=== PATIENT | male | born 2000 | race Caucasian/White ===

== ENCOUNTER 2021-07-13 00:51 | Emergency (ER) | payer OTHER ==
--- NOTE | 2021-07-13 01:49 | ED Physician Documentation ---
History of Present Illness - Stated complaint Stated Complaint: R ANKLE PX - Chief complaint Chief Complaint: Trauma Ext - Additonal information Additional information: The patient presents with complaints of right ankle pain. He reports that he was playing football with some buddies 4 days ago and tripped. He describes an inversion injury. Since that time, he has noticed bruising, swelling and a "clicking" sensation as he ambulates. He is able to weight-bear but it does cause pain. He also has pain on the upper outer aspect of his leg and points to the top of his fibula when asked where it is located. He had no other injuries. He has twisted his ankle in the past but denies ever having had any more severe injuries. Review of Systems Constitutional: denies: Fever, Chills, Myalgias Cardiac: denies: Chest pain / pressure, Palpitations Respiratory: denies: Dyspnea, Cough GI: denies: Abdominal Pain, Abdominal Swelling, Nausea, Vomiting, Diarrhea Musculoskeletal: reports: Extremity pain, Joint pain, Extremity swelling, Joint swelling, Pain with weight bearing. denies: Neck pain, Back pain Neurologic: denies: Focal weakness, Numbness, Head injury PD PAST MEDICAL HISTORY - Past Medical History Past Medical History: No - Past Surgical History Past Surgical History: No - Present Medications Home Medications: Ambulatory Orders Medication Instructions Recorded Confirmed No Known Home Medications 07/13/21 07/13/21 - Allergies Allergies/Adverse Reactions: Allergies Allergy/AdvReac Type Severity Reaction Status Date / Time No Known Drug Allergies Allergy Verified 07/13/21 00:54 - Social History Does the pt smoke?: No Smoking Status: Never smoker Does the pt drink ETOH?: No Does the pt have substance abuse?: No - Immunizations Immunizations are current?: Yes PD ED PE NORMAL - General General: Alert and oriented X 3, No acute distress - HEENT HEENT: Atraumatic - Neck Neck: No bony TTP - Cardiac Cardiac: RRR, No murmur, No gallop, No rub - Respiratory Respiratory: No respiratory distress, Clear bilaterally - Abdomen Abdomen: Normal bowel sounds, Soft, Non tender, Non distended PD ED PE EXPANDED - Extremities Extremities: Limited ROM, Swelling, Right leg (The patient had mild tenderness on his proximal lower extremity in the fibular region. Examination of his lateral ankle revealed soft tissue swelling, ecchymosis and mild tenderness. He had no ligamentous laxity and had 2+ DP and PT pulses.), Right ankle, Motor intact, Sensory intact, Vascular intact, Tendon intact. No: Ligament laxity Results - Vitals Vitals: Vital Signs - 24 hr 07/13/21 07/13/21 07/13/21 00:55 01:00 03:08 Temperature 36.7 C 36.7 C 36.7 C Heart Rate 66 66 65 Respiratory 16 16 16 Rate Blood Pressure 146/81 H 146/81 H 128/71 O2 Saturation 99 99 100 Oxygen O2 Source Room air - Rads (name of study) No standard instances Radiology: EMP read indepedently (No acute fracture per my preliminary evaluation) PD MEDICAL DECISION MAKING - ED course Complexity details: reviewed results, re-evaluated patient, considered differential, d/w patient ED course: Clinically, the patient appears to have suffered an ankle sprain. He was provided with an air splint in the emergency department and was offered crutches. He does not want the latter. He says that he is able to weight-bear without difficulty. We discussed the use of OTC NSAIDs and RICE includingTheir appropriate use, risks and side effects. [place] encouraged to call or return if his symptoms worsen or if new symptoms were to develop. I did explain that the radiologist would be reading his films and I would contact him if there were any discrepancy. Departure - Departure Disposition: 01 Home, Self Care Condition: Stable Instructions: ED Sprain Ankle W X Ray, ED RICE, ED Air Stirrup Ank Brace Inf Td Follow-Up: Jermain Blackwood MD [Provider Admit Priv/Credential] - Within 1 week Discharge Date/Time: 07/13/21 03:08
[2021-07-13 03:09] VITALS: BP 128/71
--- NOTE | 2021-07-13 08:07 | XRAY Report ---
PROCEDURE: Tib/Fib RT INDICATIONS: trauma TECHNIQUE: 2 views of the tibia and fibula were acquired. COMPARISON: None FINDINGS: Bones: No fractures or dislocations. No suspicious bony lesions. Soft tissues: No suspicious soft tissue calcifications or masses. IMPRESSION: No fracture. No osseous lesion. If there are persistent symptoms or continued clinical concern for pa thology, then repeat plain film radiographs (7-10 days) or advanced imaging (CT, MR, bone scan) shoul d be considered for further evaluation. Reviewed by: Katey Arenas MD, PhD on 07/13/2021 8:05 AM PDT Approved by: Katey Arenas MD, PhD on 07/13/2021 8:05 AM PDT Station ID: [id number]
--- NOTE | 2021-07-13 08:07 | XRAY Report ---
PROCEDURE: Ankle 3 View RT INDICATIONS: trauma TECHNIQUE: 3 views of the ankle were acquired. COMPARISON: None FINDINGS: Bones: No fractures or dislocations. Ankle mortise is normally aligned. No suspicious bony lesions . Soft tissues: No tibiotalar joint effusion. Achilles tendon appears normal. Lateral soft tissue swe lling is noted and ligamentous injury cannot be excluded. IMPRESSION: No fracture. No osseous lesion. If there are persistent symptoms or continued clinical concern for pa thology, then repeat plain film radiographs (7-10 days) or advanced imaging (CT, MR, bone scan) shoul d be considered for further evaluation. Reviewed by: Katey Arenas MD, PhD on 07/13/2021 8:06 AM PDT Approved by: Katey Arenas MD, PhD on 07/13/2021 8:06 AM PDT Station ID: [id number]
== END 2021-07-13 03:08 | disposition home or self-care (01) ==
LOC: ED 00:51
DX: S93.401A Sprain of unspecified ligament of right ankle, initial encounter (principal); X50.1XXA Overexertion from prolonged static or awkward postures, initial encounter; Y93.61 Activity, american tackle football
CPT/HCPCS: 99282; 99283